=== PATIENT | male | born 1965 | race African-American/Black ===

== ENCOUNTER 2017-11-24 18:50 | Inpatient (IN) | payer OTHER ==
--- NOTE | 2017-11-24 19:39 | ED ---
General Adult HPI - General Chief complaint: Chest Pain Stated complaint: blayne, neck pain, chest pain Time Seen by Provider: 11/24/17 19:09 Source: patient, RN notes reviewed Mode of arrival: ambulatory Limitations: no limitations - History of Present Illness Initial comments: 52-year-old male presents for evaluation of chest pain. Patient has history of coronary artery bypass graft approximately 10 years ago. Patient has not followed up with primary care physician or cardiology in the past several years secondary to insurance issues. He states he's had worsening chest pain which is exertional over the past several months. He is also had some dyspnea associated with this. Pain radiates to his neck and left arm. He is not regularly taking any medication. He is a current smoker. He states he has had a mild cough and subjective fever yesterday. States his pain is substernal pressure and tightness. Patient is chest pain-free at the time my evaluation. - Related Data Home Medications Medication Instructions Recorded Confirmed Aspirin 325 mg PO DAILY 11/24/17 11/24/17 Allergies Allergy/AdvReac Type Severity Reaction Status Date / Time No Known Allergies Allergy Verified 11/24/17 20:10 Review of Systems ROS Statement: Those systems with pertinent positive or pertinent negative responses have been documented in the HPI. ROS Other: All systems not noted in ROS Statement are negative. Past Medical History Past Medical History: Coronary Artery Disease (CAD), Chest Pain / Angina History of Any Multi-Drug Resistant Organisms: None Reported Past Surgical History: Coronary Bypass/CABG Additional Past Surgical History / Comment(s): Bypass x 5 Smoking Status: Current every day smoker Past Alcohol Use History: None Reported Past Drug Use History: None Reported General Exam Limitations: no limitations General appearance: alert, in no apparent distress Head exam: Present: atraumatic, normocephalic Eye exam: Present: normal appearance, PERRL ENT exam: Present: normal exam Neck exam: Present: normal inspection. Absent: tenderness, meningismus Respiratory exam: Present: wheezes (Scattered wheezing) Cardiovascular Exam: Present: regular rate, normal rhythm GI/Abdominal exam: Present: soft. Absent: distended, tenderness Extremities exam: Present: normal inspection, normal capillary refill, pedal edema (trace) Back exam: Present: normal inspection, full ROM Neurological exam: Present: alert, oriented X3 Psychiatric exam: Present: normal affect, normal mood Skin exam: Present: warm, dry, intact. 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 EKG Findings - EKG Comments: EKG Findings:: EKG shows normal sinus rhythm, incomplete right bundle branch block, rate of 92 IA interval 144, QRS duration 112, QTC prolonged at 546, there is ST segment depression and T-wave abnormality in the lateral precordium and to 3 and aVF. This is new compared to EKG in 2009. Medical Decision Making - Medical Decision Making 52-year-old male presenting with chest pain, pain is been ongoing for months, worsening over the past 3 days. E[address] shows diffuse ST segment depressions no signs of ST segment elevation. Case is discussed with cardiology Dr. Leon. Patient will be heparinized, likely completed DC. Patient receives aspirin, heparin, and beta bob in emergency department. He was chest pain-free while in the emergency department. Laboratory studies reveal potassium 3.4 which is replaced, white blood cell count 13.7 mildly elevated, hemoglobin 14.5, creatinine 1.6 with no known baseline. Troponin significantly elevated at 33. Chest x-ray shows mild pulmonary vascular congestion consistent with heart failure. Diagnosis: Non-ST segment elevated DC, new onset heart failure - Lab Data Result diagrams: 11/24/17 19:30 11/24/17 19:30 Lab Results 11/24/17 11/24/17 11/24/17 Range/Units 19:30 19:30 19:30 WBC 13.7 H (3.8-10.6) k/uL RBC 5.02 (4.30-5.90) m/uL Hgb 14.5 (13.0-17.5) gm/dL Hct 43.5 (39.0-53.0) % MCV 86.5 (80.0-100.0) fL MCH 28.9 (25.0-35.0) pg MCHC 33.4 (31.0-37.0) g/dL RDW 14.8 (11.5-15.5) % Plt Count 199 (150-450) k/uL Neutrophils % 83 % Lymphocytes % 9 % Monocytes % 6 % Eosinophils % 0 % Basophils % 0 % Neutrophils # 11.4 H (1.3-7.7) k/uL Lymphocytes # 1.2 (1.0-4.8) k/uL Monocytes # 0.9 (0-1.0) k/uL Eosinophils # 0.0 (0-0.7) k/uL Basophils # 0.1 (0-0.2) k/uL PT (9.0-12.0) sec INR (<1.2) APTT (22.0-30.0) sec Sodium (137-145) mmol/L Potassium (3.5-5.1) mmol/L Chloride (98-107) mmol/L Carbon Dioxide (22-30) mmol/L Anion Gap mmol/L BUN (9-20) mg/dL Creatinine (0.66-1.25) mg/dL Est GFR (MDRD) Af Amer (>60 ml/min/1.73 sqM) Est GFR (MDRD) Non-Af (>60 ml/min/1.73 sqM) Glucose (74-99) mg/dL Plasma Lactic Acid Juwan 2.0 (0.7-2.0) mmol/L Calcium (8.4-10.2) mg/dL Magnesium (1.6-2.3) mg/dL Total Bilirubin (0.2-1.3) mg/dL AST (17-59) U/L ALT (21-72) U/L Alkaline Phosphatase (38-126) U/L Total Creatine Kinase 419 H (55-170) U/L CK-MB (CK-2) 29.5 H* (0.0-2.4) ng/mL CK-MB (CK-2) Rel Index 7.0 Troponin I 33.300 H* (0.000-0.034) ng/mL NT-Pro-B Natriuret Pep pg/mL Total Protein (6.3-8.2) g/dL Albumin (3.5-5.0) g/dL 11/24/17 11/24/17 11/24/17 Range/Units 19:30 19:30 19:30 WBC (3.8-10.6) k/uL RBC (4.30-5.90) m/uL Hgb (13.0-17.5) gm/dL Hct (39.0-53.0) % MCV (80.0-100.0) fL MCH (25.0-35.0) pg MCHC (31.0-37.0) g/dL RDW (11.5-15.5) % Plt Count (150-450) k/uL Neutrophils % % Lymphocytes % % Monocytes % % Eosinophils % % Basophils % % Neutrophils # (1.3-7.7) k/uL Lymphocytes # (1.0-4.8) k/uL Monocytes # (0-1.0) k/uL Eosinophils # (0-0.7) k/uL Basophils # (0-0.2) k/uL PT 11.6 (9.0-12.0) sec INR 1.2 H (<1.2) APTT 25.9 (22.0-30.0) sec Sodium 141 (137-145) mmol/L Potassium 3.4 L (3.5-5.1) mmol/L Chloride 103 (98-107) mmol/L Carbon Dioxide 26 (22-30) mmol/L Anion Gap 12 mmol/L BUN 30 H (9-20) mg/dL Creatinine 1.60 H (0.66-1.25) mg/dL Est GFR (MDRD) Af Amer 55 (>60 ml/min/1.73 sqM) Est GFR (MDRD) Non-Af 45 (>60 ml/min/1.73 sqM) Glucose 133 H (74-99) mg/dL Plasma Lactic Acid Juwan (0.7-2.0) mmol/L Calcium 9.2 (8.4-10.2) mg/dL Magnesium 2.0 (1.6-2.3) mg/dL Total Bilirubin 1.1 (0.2-1.3) mg/dL AST 104 H (17-59) U/L ALT 42 (21-72) U/L Alkaline Phosphatase 54 (38-126) U/L Total Creatine Kinase (55-170) U/L CK-MB (CK-2) (0.0-2.4) ng/mL CK-MB (CK-2) Rel Index Troponin I (0.000-0.034) ng/mL NT-Pro-B Natriuret Pep 67155 pg/mL Total Protein 6.5 (6.3-8.2) g/dL Albumin 3.5 (3.5-5.0) g/dL Critical Care Time Critical Care Time: Yes Total Critical Care Time: 35 Disposition Clinical Impression: NSTEMI (non-ST elevated myocardial infarction) Disposition: ADMITTED IP TO THIS [facility] Condition: Serious Referrals: Nino Rey MD [Primary Care Provider] - 1-2 days Decision to Admit Reason: Admit from EC Decision Date: 11/24/17 Decision Time: 20:49
--- NOTE | 2017-11-24 19:47 | XR ---
EXAMINATION TYPE: XR chest 2V DATE OF EXAM: 11/24/2017 COMPARISON: NONE HISTORY: Chest pain TECHNIQUE: Frontal and lateral views of the chest are obtained. FINDINGS: There is coarsening of interstitial markings. There is slight blunting of the posterior co stophrenic angles. There are sternal wires. There are chest leads. Heart size is normal. IMPRESSION: Mild pulmonary interstitial edema and small pleural effusions could relate to mild heart failure.
[2017-11-24 19:57] LABS: Albumin 3.5 g/dL (3.5-5.0); Basophils # (A) 0.1 k/uL (0-0.2); Basophils % (A) 0 %; Calcium 9.2 mg/dL (8.4-10.2); Eosinophils % (A) 0 %; HCT 43.5 % (39.0-53.0); HGB 14.5 gm/dL (13.0-17.5); Lymphocytes # (A) 1.2 k/uL (1.0-4.8); Lymphocytes % (A) 9 %; MCH 28.9 pg (25.0-35.0); MCHC 33.4 g/dL (31.0-37.0); MCV 86.5 fL (80.0-100.0); Monocytes # (A) 0.9 k/uL (0-1.0); Monocytes % (A) 6 %; Neutrophils # (A) 11.4 k/uL (1.3-7.7); Neutrophils % (A) 83 %; Platelet Count 199 k/uL (150-450); Potassium 3.4 mmol/L (3.5-5.1); RBC 5.02 m/uL (4.30-5.90); RDW 14.8 % (11.5-15.5); Total Bilirubin 1.1 mg/dL (0.2-1.3); Total Protein 6.5 g/dL (6.3-8.2); WBC 13.7 k/uL (3.8-10.6)
[2017-11-24 20:09] LABS: INR 1.2 (<1.2); Partial Thromboplastin Time 25.9 sec (22.0-30.0); Prothrombin Time 11.6 sec (9.0-12.0)
[2017-11-24] MEDS ORDERED: FUROSEMIDE 10 MG/ML 4 ML VIAL IV STA (20:14)
[2017-11-24] MEDS ORDERED: POTASSIUM CHLORIDE ER 20 MEQ TAB.ER PO STA (20:14)
[2017-11-24] MEDS ORDERED: ASPIRIN 325 MG TAB PO STA (20:14)
[2017-11-24] MEDS ORDERED: HEPARIN SODIUM,PORCINE 5,000 UNIT/ML 1 ML VIAL IV ONE (20:16)
[2017-11-24] MEDS ORDERED: HEPARIN SODIUM,PORCINE 5,000 UNIT/ML 1 ML VIAL IV PRN (20:16)
[2017-11-24 20:22] LABS: Creatine Kinase MB 29.5 ng/mL (0.0-2.4); Troponin I 33.3 ng/mL (0.000-0.034)
[2017-11-24] MEDS ORDERED: HEPARIN SOD,PORK IN 0.45% NACL 25,000 UNIT in 0.45% NACL 1 500ML.BAG IV SCH (20:30)
[2017-11-24] MEDS ORDERED: NITROGLYCERIN SL TABS 0.4 MG TAB SUBLINGUAL PRN (20:45)
[2017-11-24] MEDS: ATORVASTATIN 80 MG TAB PO SCH (21:09)
[2017-11-24] MEDS: METOPROLOL TARTRATE 12.5 MG TAB PO SCH (21:10)
[2017-11-24] MEDS ORDERED: ACETAMINOPHEN TAB 500 MG TAB PO STA (21:34)
[2017-11-24] MEDS ORDERED: ALPRAZolam 0.25 MG TAB PO PRN (23:03)
[2017-11-24] MEDS ORDERED: TEMAZEPAM 15 MG CAP PO PRN (23:03)
[2017-11-24] MEDS ORDERED: NICOTINE 14MG/24HR PATCH TRANSDERM SCH (23:15)
[2017-11-25 03:17] LABS: Basophils # (A) 0.1 k/uL (0-0.2); Basophils % (A) 1 %; Eosinophils # (A) 0.1 k/uL (0-0.7); Eosinophils % (A) 1 %; Lymphocytes # (A) 2.6 k/uL (1.0-4.8); Lymphocytes % (A) 20 %; MCH 28.8 pg (25.0-35.0); MCHC 32.6 g/dL (31.0-37.0); MCV 88.2 fL (80.0-100.0); Mean Platelet Volume 8.3; Monocytes # (A) 0.8 k/uL (0-1.0); Monocytes % (A) 6 %; Neutrophils # (A) 9.3 k/uL (1.3-7.7); Neutrophils % (A) 71 %; Platelet Count 237 k/uL (150-450); RBC 5.21 m/uL (4.30-5.90); RDW 14.9 % (11.5-15.5); WBC 13.2 k/uL (3.8-10.6)
[2017-11-25 03:27] LABS: Calcium 9.3 mg/dL (8.4-10.2); Potassium 3.5 mmol/L (3.5-5.1)
[2017-11-25 04:05] LABS: Creatine Kinase MB 28.9 ng/mL (0.0-2.4); Troponin I 50.3 ng/mL (0.000-0.034)
[2017-11-25 04:59] LABS: Appearance,Urine Clear (Clear); Bilirubin,Urine Negative (Negative); Blood,Urine Trace (Negative); Color,Urine Yellow; Glucose,Urine (UA) Negative (Negative); Hyaline Casts,Urine 92 /lpf (0-2); Ketones,Urine Negative (Negative); Leukocyte Esterase,Urine Negative (Negative); Mucus,Urine Rare /hpf; Nitrite,Urine Negative (Negative); PH, Urine 5.5 (5.0-8.0); Protein,Urine 1+ (Negative); Urobilinogen,Urine <2.0 mg/dL (<2.0)
[2017-11-25] MEDS: PANTOPRAZOLE 40 MG TABLET PO SCH (06:40)
[2017-11-25] MEDS ORDERED: ATORVASTATIN 80 MG TAB PO STA (07:54)
[2017-11-25] MEDS ORDERED: SODIUM CHLORIDE 0.9% 1,000 ML in EMPTY BAG 1 BAG IV ONE (07:54)
[2017-11-25] MEDS ORDERED: NITROGLYCERIN SL TABS 0.4 MG TAB SUBLINGUAL PRN (07:54)
[2017-11-25] MEDS ORDERED: ASPIRIN 325 MG TAB PO STA (07:54)
[2017-11-25] MEDS: METOPROLOL TARTRATE 12.5 MG TAB PO SCH ×2 (08:15→20:12)
[2017-11-25] MEDS: ASPIRIN 325 MG TAB PO SCH (08:16)
[2017-11-25] MEDS ORDERED: LIDOCAINE 2% INJ 20 MG/ML (20 ML MDV) ONE (08:37)
--- NOTE | 2017-11-25 08:46 | HP ---
HISTORY AND PHYSICAL CHIEF COMPLAINTS: Chest pain. HISTORY OF PRESENT ILLNESS: This 52-year-old gentleman with a past history of atrial fibrillation, CAD, hypertension, history of hyperlipidemia, history of DJD being followed by Dr. Rey and Dr. Maddox previously is basically noncompliant with medications. Patient had CAD, CABG x5 about 10 years ago. The patient is not taking medication. Patient continues to smoke. For the last several months the patient is having chest pains on and off involving the left side of the chest radiating to the left side of the neck and to the jaw. The patient came to [facility] today and the EKG showed multiple changes with ST depression in multiple leads and non-progression of R wave in anterior leads. Comparison EKGs not available at this time. The troponins elevated up to 30 and the patient admitted for further evaluation and treatment. IV heparin drip was initiated. There is no history of fever, rigors. No history of headache, loss of consciousness, seizures. PAST MEDICAL HISTORY: Atrial fibrillation, CAD, chest pain, hypertension, hyperlipidemia, DJD, history of CAD and CABG. MEDICATIONS: Prior to admission previously was: 1. Zocor 40 mg q.h.s. 2. Sherburn 10 mg q.4h p.r.n. 3. Aspirin 160 mg daily. 4. Clonidine 0.1 p.o. t.i.d. 5. Lopressor 50 mg b.i.d. ALLERGIES: None. FAMILY HISTORY: History of breast cancer in the family. SOCIAL HISTORY: History of smoking on a continued basis. REVIEW OF SYSTEMS: ENT: No diminished hearing or vision. CARDIOVASCULAR: As mentioned earlier. RESPIRATORY: As mentioned earlier. GI: No nausea. : No dysuria. NERVOUS SYSTEMS: No numbness or weakness. ALLERGY/IMMUNOLOGY: No asthma or hayfever. MUSCULOSKELETAL: No history of arthritis. CONSTITUTIONAL: As mentioned earlier. DERMATOLOGY: Negative. RHEUMATOLOGY: Negative. PSYCHIATRY: As mentioned earlier. PHYSICAL EXAM: Patient is alert, oriented x3. Pulse is 88, blood pressure 130/88, respiration 18, temperature is 101.1, pulse ox 97% on 2 L. HEENT: Conjunctivae normal. Oral mucosa moist. Neck is no jugular venous distention. No carotid bruit. No lymph node enlargement. CARDIOVASCULAR: S1, S2. RESPIRATORY: Breath sounds diminished in the bases. No rhonchi. No crackles. ABDOMEN: Soft, nontender. No mass palpable. LEGS: No edema, no swelling. NERVOUS SYSTEM: Higher functions as mentioned earlier, moves all 4 limbs, no focal motor or sensory deficits. LYMPHATICS: No lymphadenopathy in the neck, axillae, or groin. SKIN: No ulcer, rash, bleeding. LAB STUDIES: WBC 13.7. INR 1.2. Potassium 3.4, creatinine 1.60, AST is 104, ALT is 42, creatine kinase 119, and troponins are 33. ASSESSMENT: 1. Chest pain with acute non ST-segment elevation myocardial infarction with troponin 33.3300. 2. ST-T changes in the EKG. 3. History of myocardial infarction, coronary artery disease, CABG x5 previously. 4. History of noncompliance. 5. Increased creatinine possible chronic kidney disease stage 3. 6. Hypokalemia, mild. 7. Fever for evaluation. 8. Increased WBC, possibly reactive. 9. History atrial fibrillation. 10.History of hypertension. 11.History of hyperlipidemia. 12.History of degenerative joint disease. 13.Continued ongoing nicotine dependence. RECOMMENDATIONS AND DISCUSSION: This 52-year-old gentleman who presented with multiple complex medical issues, we will monitor the patient closely. Continue the current management and symptomatic treatment. I recommend antiplatelet agents, beta blockers, IV heparin. Cardiology consultation. Smoking cessation Habitrol. I would also recommend Lipitor at this time. Importance of compliance also stressed. Will follow the patient closely with Cardiology. Prognosis guarded because of multiple complex medical issues. Discussed with the patient and family who understands and further recommendations to follow. MMODL / IJN: [id number] /
--- NOTE | 2017-11-25 09:02 | P.CRDCN ---
History of Present Illness History of present illness: Patient presented with recurrent chest discomfort and worsening shortness of breath for several days may be more. History is very unclear he is noncompliant and has not followed up after his heart surgery with Dr. Maddox Review of systems: No fever chills or rigors, no cough, phlegm or expectoration , no nausea, vomiting or diarrhea, no hematuria, dysuria, no musculoskeletal complaints, no strokes or seizures, no skin lesions. NO KNOWN DRUG ALLERGIES Medication list was reviewed and as documented in the chart Past history of coronary artery disease coronary artery bypass grafting peripheral vascular disease peripheral vascular surgery noncompliance with follow-up with cardiology On examination his temperature is 101.1 he had been complaining of cough with brownish phlegm this morning it was 97.2F, pulse rate in the 70s, normal respirations nonlabored, blood pressure 133 were reformatted images of mercury Breath sounds are reduced bilaterally no rhonchi no crackles Heart sounds S1 and S2 are soft no murmurs or gallops Abdomen is soft nontender Extended is warm no edema Labs are reviewed white count 13.2 Lites are normal. 31 creatinine 1.7 Troponins 33 and 50 BMP 14,900 Twelve-lead ECG shows sinus rhythm 92 beats a minute normal NH narrow QRS ST depression upsloping V4-V6 and horizontal 1-2 mm in the inferior leads Impression Non-Q wave myocardial infarction Known coronary artery disease status post coronary artery bypass grafting Known peripheral vascular disease Presented with shortness of breath and recurrent chest discomfort for several days history is sketchy Suggest Medical management of acute myocardial infarction and coronary angiography this morning for the management thereafter Gradual maximization of medical treatment Past Medical History Past Medical History: Atrial Fibrillation, Coronary Artery Disease (CAD), Chest Pain / Angina, Hyperlipidemia, Hypertension, Osteoarthritis (OA) History of Any Multi-Drug Resistant Organisms: None Reported Past Surgical History: Coronary Bypass/CABG Additional Past Surgical History / Comment(s): CABG x 5 vessels Past Anesthesia/Blood Transfusion Reactions: No Reported Reaction Past Psychological History: No Psychological Hx Reported Smoking Status: Current every day smoker Past Alcohol Use History: None Reported Past Drug Use History: None Reported - Past Family History Mother Family Medical History: Cancer Additional Family Medical History / Comment(s): breast Father Family Medical History: CVA/TIA Sister(s) Family Medical History: Cancer Medications and Allergies Home Medications Medication Instructions Recorded Confirmed Type Aspirin 162 mg PO DAILY 11/24/17 11/24/17 History HYDROcodone/APAP 10-325MG [Modale 1 tab PO Q4HR PRN 11/24/17 11/24/17 History 10-325] Metoprolol Tartrate [Lopressor] 50 mg PO BID 11/24/17 11/24/17 History Simvastatin [Zocor] 40 mg PO HS 11/24/17 11/24/17 History cloNIDine HCL [Catapres] 0.1 mg PO TID 11/24/17 11/24/17 History Allergies Allergy/AdvReac Type Severity Reaction Status Date / Time No Known Allergies Allergy Verified 11/24/17 20:10 Physical Exam Vitals: Vital Signs Temp Pulse Pulse Resp BP BP Pulse Ox 11/25/17 07:55 98.5 F 82 16 142/99 98 11/25/17 04:00 97.2 F L 75 16 133/84 98 11/25/17 00:26 99 F 86 18 136/90 96 11/24/17 21:33 101.1 F H 86 14 151/94 98 11/24/17 20:47 88 18 136/88 97 11/24/17 19:34 90 11/24/17 18:56 88 18 136/88 98 11/24/17 18:53 98.8 F 95 24 165/96 97 Intake and Output 11/24/17 11/25/17 11/25/17 22:59 06:59 14:59 Intake Total 300.667 0 Output Total 400 Balance -99.333 0 Intake: IV 160 Heparin Sod,Pork in 0.45% 160 NaCl 25,000 unit In 0.45 % NaCl 1 500ml.bag @ 8.48 UNITS/KG/HR 20 mls/hr IV .Q24H ADRIEL Rx#:[id number] Intake, IV Titration 140.667 Amount Heparin Sod,Pork in 0.45% 140.667 NaCl 25,000 unit In 0.45 % NaCl 1 500ml.bag @ 8.48 UNITS/KG/HR 20 mls/hr IV .Q24H ADRIEL Rx#:[id number] Oral 0 Output: Urine 400 Other: Voiding Method Toilet Weight 117.934 kg 128.9 kg Results 11/25/17 02:48 11/25/17 02:48 Cardiac Enzymes 11/24/17 11/24/17 11/25/17 Range/Units 19:30 19:30 02:48 AST 104 H (17-59) U/L CK-MB (CK-2) 29.5 H* 28.9 H* (0.0-2.4) ng/mL Troponin I 33.300 H* 50.300 H* (0.000-0.034) ng/mL Coagulation 11/24/17 11/25/17 Range/Units 19:30 02:48 PT 11.6 (9.0-12.0) sec APTT 25.9 27.4 (22.0-30.0) sec Lipids 11/25/17 Range/Units 02:48 Triglycerides 94 (<150) mg/dL Cholesterol 166 (<200) mg/dL HDL Cholesterol 50 (40-60) mg/dL CBC 11/24/17 11/25/17 Range/Units 19:30 02:48 WBC 13.7 H 13.2 H (3.8-10.6) k/uL RBC 5.02 5.21 (4.30-5.90) m/uL Hgb 14.5 15.0 (13.0-17.5) gm/dL Hct 43.5 46.0 (39.0-53.0) % Plt Count 199 237 (150-450) k/uL Comprehensive Metabolic Panel 11/24/17 11/25/17 Range/Units 19:30 02:48 Sodium 141 140 (137-145) mmol/L Potassium 3.4 L 3.5 (3.5-5.1) mmol/L Chloride 103 103 (98-107) mmol/L Carbon Dioxide 26 28 (22-30) mmol/L BUN 30 H 31 H (9-20) mg/dL Creatinine 1.60 H 1.70 H (0.66-1.25) mg/dL Glucose 133 H 99 (74-99) mg/dL Calcium 9.2 9.3 (8.4-10.2) mg/dL AST 104 H (17-59) U/L ALT 42 (21-72) U/L Alkaline Phosphatase 54 (38-126) U/L Total Protein 6.5 (6.3-8.2) g/dL Albumin 3.5 (3.5-5.0) g/dL Current Medications Generic Name Dose Route Start Last Admin Trade Name Freq PRN Reason Stop Dose Admin Hydrocodone Bitart/Acetaminophen 1 each 11/24/17 22:36 Modale 10 PO Q4HR PRN Pain Alprazolam 0.25 mg 11/25/17 07:54 Xanax PO Q6HR PRN Mild Anxiety Alprazolam 0.5 mg 11/25/17 07:54 Xanax PO Q6HR PRN Moderate Anxiety Aspirin 325 mg 11/25/17 09:00 11/25/17 08:16 Aspirin PO Not Given DAILY [facility] Atorvastatin Calcium 40 mg 11/24/17 21:00 11/24/17 21:09 Lipitor PO 40 mg HS [facility] Administration Heparin Sodium (Porcine) 0 unit 11/24/17 20:16 11/25/17 03:36 Heparin IV 4,000 unit PER PROTOCOL PRN Administration Low PTT Protocol Heparin Sodium/Sodium Chloride 500 mls @ 20 mls/hr 11/24/17 20:30 11/25/17 03 :36 25,000 unit/ Sodium Chloride IV 11.48 units/kg/hr .Q24H ADRIEL 27.07 mls/hr Protocol Titration 8.48 UNITS/KG/HR Metoprolol Tartrate 12.5 mg 11/24/17 21:00 11/25/17 08:15 Lopressor PO 12.5 mg BID [facility] Administration Nicotine 1 patch 11/25/17 07:59 Habitrol 14mg/24hr Patch [facility] Nitroglycerin 0.4 mg 11/25/17 07:54 Nitrostat SUBLINGUAL Q5M PRN Chest Pain Pantoprazole Sodium 40 mg 11/25/17 07:30 11/25/17 06:40 Protonix PO 40 mg [id number] [facility] Administration Temazepam 15 mg 11/24/17 23:03 Restoril PO HS PRN Insomnia Intake and Output 11/24/17 11/25/17 11/25/17 22:59 06:59 14:59 Intake Total 300.667 0 Output Total 400 Balance -99.333 0 Intake: IV 160 Heparin Sod,Pork in 0.45% 160 NaCl 25,000 unit In 0.45 % NaCl 1 500ml.bag @ 8.48 UNITS/KG/HR 20 mls/hr IV .Q24H ADRIEL Rx#:[id number] Intake, IV Titration 140.667 Amount Heparin Sod,Pork in 0.45% 140.667 NaCl 25,000 unit In 0.45 % NaCl 1 500ml.bag @ 8.48 UNITS/KG/HR 20 mls/hr IV .Q24H [facility] Rx#:[id number] Oral 0 Output: Urine 400 Other: Voiding Method Toilet Weight 117.934 kg 128.9 kg 11/25/17 02:48 11/25/17 02:48
[2017-11-25] MEDS ORDERED: MIDAZOLAM 2 MG/2 ML VIAL ONE (09:14)
[2017-11-25] MEDS ORDERED: MIDAZOLAM 2 MG/2 ML VIAL IV ONE ×2 (09:22→09:26)
[2017-11-25] MEDS ORDERED: LIDOCAINE 2% INJ 20 MG/ML SQ ONE ×2 (09:25→09:57)
[2017-11-25 09:45] LABS: Creatine Kinase MB 20.4 ng/mL (0.0-2.4); Troponin I 50.4 ng/mL (0.000-0.034)
[2017-11-25] MEDS ORDERED: IODIXANOL 320 MG/ML 100 ML INTRAARTER ONE (09:57)
[2017-11-25] MEDS ORDERED: HYDROmorphone 2 MG/ML 1 ML SYRINGE ONE (09:58)
[2017-11-25] MEDS ORDERED: HYDROmorphone 2 MG/ML 1 ML SYRINGE IV ONE (10:00)
[2017-11-25] MEDS ORDERED: IV FLUID CONTINUATION 1,000 ML IV ONE (10:01)
[2017-11-25] MEDS ORDERED: RX INFO: IV CONTRAST WAS GIVEN 1 EACH MISC MISCELLANE PRN (10:12)
[2017-11-25] MEDS ORDERED: SODIUM CHLORIDE 0.9% 1,000 ML IV SCH (10:15)
--- NOTE | 2017-11-25 10:43 | CC ---
CARDIAC CATHETERIZATION REPORT DATE OF SERVICE: 11/25/2017 PERFORMING PHYSICIAN: Tristan Ramsey MD, Sports Director. PROCEDURE PERFORMED: 1. Selective left and right coronary angiogram. 2. SVG to diagonal angiogram. 3. SVG to first obtuse marginal branch angiogram. 4. SVG to second obtuse marginal branch angiogram. 5. SVG to RCA angiogram. 6. KILPATRICK to LAD angiogram. 7. Left heart catheterization. 8. Left ventriculography. INDICATION: This is a pleasant 52-year-old gentleman who is known to have coronary artery disease and prior coronary artery bypass grafting in 2008 where he received KILPATRICK to LAD, SVG to diag, SVG to 1st and second obtuse marginal branch, SVG to RCA, and KILPATRICK to LAD, presented to the hospital complaining of chest discomfort. Unfortunately, he continues to smoke. Also, he is noncompliant with his medication. He was seen and evaluated by Dr. Leon who recommended proceeding with a heart catheterization. APPROACH: Right common femoral artery. COMPLICATION: None LEVEL OF SEDATION: Moderate with sedation length of 37 minutes. PROCEDURE DESCRIPTION: After obtaining informed consent, the patient was brought to the Cardiac Track Inspecting Supervisor. The right common femoral artery was cannulated using micropuncture technique, the micropuncture wire passed easily. Then I placed a 6-Sami sheath in the right common femoral artery. After that, I did selective right and left coronary angiogram using JL4 and JR4 catheters. SVG to RCA angiogram was performed using multipurpose catheter. SVG to left circumflex and diagonal angiogram was performed using the JR4 catheter. KILPATRICK to LAD angiogram was performed using IM catheter. Subsequently, I did left heart catheterization and then LV gram using 6-Sami pigtail catheter. The procedure was completed without any complication. SELECTIVE CORONARY ANGIOGRAM: 1. The left main has distal lesion in the range of 70%. The left main bifurcates into the left circumflex, ramus intermedius, and left anterior descending artery. 2. The left circumflex is involved in the lesion from the distal left main and appeared to have a lesion ostially up in the range of 70%. The left circumflex proximally appeared to have mild disease only. It gives rise into a medium-size first obtuse marginal branch. which does have a lesion in the range of 50%. The first obtuse marginal branch distally appeared to have mild disease only. The left circumflex after the first OM branch appeared to be 100% occluded. 3. The ramus intermedius appeared to have mild disease only, but it is only a small to medium caliber vessel. 4. The left anterior descending artery is 100% occluded proximally. 5. The RCA is a medium caliber vessel and it is a dominant vessel. The RCA appeared to be diffusely diseased up to about 80% to 90% on the long tubular lesion in the midportion. The RCA after that appeared to be 100% occluded. CORONARY BYPASS ANGIOGRAM: 1. The SVG to diag is occluded. 2. The SVG to first obtuse marginal branch is occluded. 3. The SVG to second obtuse marginal branch is occluded. 4. The SVG to RCA is patent. 5. The KILPATRICK to LAD is patent. The LAD distal to the KILPATRICK anastomosis has lesion appeared to be in the range of 40% to 50%. 6. HEMODYNAMICS: The left ventricular end-diastolic pressure was about 8 mmHg and no gradient was identified across the aortic valve. Left ventriculography was performed in the BONNER projection and using a hand injection. The left ventricular systolic function by hand injection is difficult to assess but appeared to be impaired with EF about 35%. CONCLUSION: 1. Severe triple-vessel coronary artery disease. 2. Patent KILPATRICK to LAD. 3. Patent SVG to RCA. 4. Occluded vein grafts to left circumflex. POSTPROCEDURE MANAGEMENT: I recommended at this point in view of the maximal amount of contrast used to pursue a conservative medical approach and medical treatment only. Another reason to pursue a conservative medical approach, the patient being noncompliant with his medications. The only time I would consider proceeding with PCI of the distal left main and left circumflex, if the patient continues to have chest discomfort in spite of maximized medical treatment. MMODL / IJN: [id number] /
[2017-11-25] MEDS: ACETAMINOPHEN TAB 500 MG TAB PO PRN (11:21)
[2017-11-25] MEDS: HYDROcodone/APAP 10-325MG 1 EACH TAB PO PRN ×2 (12:46→20:19)
[2017-11-25] MEDS: ALPRAZolam 0.25 MG TAB PO PRN (12:46)
[2017-11-25] MEDS: NICOTINE 14MG/24HR PATCH TRANSDERM SCH (20:12)
[2017-11-25] MEDS: ATORVASTATIN 80 MG TAB PO SCH (20:12)
[2017-11-25] MEDS: ALPRAZolam 0.5 MG TAB PO PRN (20:19)
[2017-11-26] MEDS: HYDROcodone/APAP 10-325MG 1 EACH TAB PO PRN ×3 (02:18→13:40)
[2017-11-26] MEDS: ALPRAZolam 0.25 MG TAB PO PRN ×2 (02:18→13:40)
[2017-11-26] MEDS ORDERED: ONDANSETRON 4 MG/2 ML VIAL IVP PRN (02:22)
[2017-11-26] MEDS: METOPROLOL TARTRATE 12.5 MG TAB PO SCH (04:20)
[2017-11-26] MEDS: PANTOPRAZOLE 40 MG TABLET PO SCH (06:16)
[2017-11-26 06:57] LABS: Basophils # (A) 0.1 k/uL (0-0.2); Basophils % (A) 1 %; Eosinophils # (A) 0.1 k/uL (0-0.7); Eosinophils % (A) 1 %; HCT 42.9 % (39.0-53.0); HGB 13.6 gm/dL (13.0-17.5); Hypochromasia Slight; Lymphocytes % (A) 17 %; MCHC 31.8 g/dL (31.0-37.0); MCV 88.1 fL (80.0-100.0); Mean Platelet Volume 9.4; Monocytes # (A) 0.9 k/uL (0-1.0); Monocytes % (A) 8 %; Neutrophils # (A) 8.3 k/uL (1.3-7.7); Neutrophils % (A) 71 %; Platelet Count 206 k/uL (150-450); RBC 4.87 m/uL (4.30-5.90); RDW 15.8 % (11.5-15.5); WBC 11.6 k/uL (3.8-10.6)
[2017-11-26 07:11] LABS: Calcium 8.8 mg/dL (8.4-10.2); Potassium 3.9 mmol/L (3.5-5.1)
--- NOTE | 2017-11-26 07:17 | PN ---
PROGRESS NOTE DATE OF SERVICE: 11/25/2017 This 52-year-old gentleman who was admitted with chest pain had a history of significant noncompliance. The patient is not taking medications and continues to smoke also. Cardiology performed a cardiac catheterization. Cardiac cath showed severe triple-vessel coronary artery disease and patent KILPATRICK to LAD, patent SVG to RCA, and occluded vein graft to the left circumflex. Medical treatment was considered at this time. In case of chest pains, further intervention is being planned by Dr. Ramsey. Mild fever is noted, no cough. No shortness of breath. PHYSICAL EXAM: Alert and oriented x3. The pulse is 82, blood pressure 140/89, respirations 16, temperature 98.4, pulse ox 98% on room air. HEENT: Conjunctivae normal. NECK: No jugular venous distention. CARDIOVASCULAR: S1, S2, muffled. RESPIRATORY: Breath sounds diminished in the bases. A few scattered rhonchi and crackles. ABDOMEN: Soft, nontender. LEGS: No edema. NERVOUS SYSTEM: No focal deficits. LAB STUDIES: Troponin is 50.4, otherwise UA noted. Influenza is negative and WBC 13.2. ASSESSMENT: 1. Chest pain with acute non ST elevation myocardial infarction with troponin 33.3. 2. ST changes in the EKG. 3. Fever. 4. History of myocardial infarction, coronary artery disease, CABG x5 previously. 5. History of noncompliance. 6. History nicotine dependence, continued ongoing. 7. Increased creatinine with possible chronic kidney disease stage 3. 8. Hypokalemia, mild. 9. Increased WBC, possibly reactive. 10.History atrial fibrillation. 11.History hypertension. 12.Hyperlipidemia. 13.Degenerative joint disease. RECOMMENDATIONS AND DISCUSSION: I recommend to continue current management and continue symptomatic treatment. Continue the rest of the medications. We will monitor the creatinine closely. Repeat labs. Otherwise closely follow with Cardiology. Optimize medical treatment. Guarded prognosis because of multiple complex medical issues. Further recommendations to follow. MMODL / IJN: [id number] /
[2017-11-26] MEDS: ASPIRIN 325 MG TAB PO SCH (08:57)
[2017-11-26] MEDS: METOPROLOL TARTRATE 50 MG TAB PO SCH ×2 (11:56→20:31)
--- NOTE | 2017-11-26 13:16 | P.PN ---
Subjective Patient was seen this morning. He was sleeping comfortably in bed. He has not complained of any chest discomfort but he has definitely had some anxiety spells according to the nurse with fluctuations in blood pressure On examination his blood pressure was 144/90 mmHg pulse rate in the 90s temperature 99.2F Sounds are reduced bilaterally no rhonchi no crackles Heart sounds are normal normal S1 normal S2 Abdomen is soft and extremities are warm no edema Impression Known coronary artery disease, coronary angiography revealed triple-vessel coronary artery disease and medical management is recommended. No interventions performed. Continue antiplatelet agents and statins and increase metoprolol tartrate to 75 g twice daily LDL goal of around 50 mrem per deciliter since he has severe atherosclerosis. If his blood pressure is not controlled we can switch to carvedilol next week. Also Nitropaste can be switched to oral isosorbide Objective - Vital Signs Vital signs: Vital Signs Temp 99.2 F 11/26/17 08:00 Pulse 91 11/26/17 12:00 Resp 16 11/26/17 13:00 BP 146/104 11/26/17 12:00 Pulse Ox 96 11/26/17 12:00 Intake & Output 11/25/17 11/26/17 11/26/17 18:59 06:59 18:59 Intake Total 2470 810 780 Output Total 600 Balance 2470 210 780 Weight 129.5 kg Intake: IV 550 810 Sodium Chloride 0.9% 1, 810 000 ml @ 100 mls/hr IV . Q10H ADRIEL Rx#:[id number] Intake, IV Titration 800 Amount Sodium Chloride 0.9% 1, 800 000 ml @ 100 mls/hr IV . Q10H ADRIEL Rx#:[id number] Oral 1120 780 Output: Urine 600 Other: Voiding Method Toilet Toilet - Labs CBC & Chem 7: 11/26/17 06:14 11/26/17 06:14 Labs: Abnormal Lab Results - Last 24 Hours (Table) 11/26/17 11/26/17 Range/Units 06:14 06:14 WBC 11.6 H (3.8-10.6) k/uL RDW 15.8 H (11.5-15.5) % Neutrophils # 8.3 H (1.3-7.7) k/uL BUN 30 H (9-20) mg/dL Creatinine 1.57 H (0.66-1.25) mg/dL Microbiology - Last 24 Hours (Table) 11/24/17 19:30 Blood Culture - Preliminary Blood No Growth after 24 hours
[2017-11-26] MEDS: ACETAMINOPHEN TAB 500 MG TAB PO PRN (17:30)
[2017-11-26] MEDS: cloNIDine HCL 0.1 MG TAB PO SCH ×2 (17:30→20:34)
--- NOTE | 2017-11-26 19:35 | PN ---
PROGRESS NOTE DATE OF SERVICE: 11/26/2017. INTERVAL HISTORY: This 52-year-old gentleman who was admitted with chest pain also had features of acute non ST elevation myocardial infarction. Patient had cardiac catheterization and intervention has been deferred for now. No chest pain. No palpitations. No fever. EXAM: Alert, and oriented x3. Pulse 90. Blood pressure 140/51, respiration 18, temperature is normal. Pulse ox 98% on room air. HEENT: Conjunctivae normal. NECK: No jugular venous distention. CARDIOVASCULAR: S1, S2 normal. Respirations: Breath sounds diminished in the bases. No rhonchi and no crackles. Abdomen is soft, obese, nontender. Legs are no edema, no swelling. Central nervous system: No focal deficits. LABS: WBC 11.6. Otherwise, creatinine is 1.56. ASSESSMENT: 1. Chest pain with possible acute non ST- segment elevation myocardial infarction, troponin 33.3. 2. Status post cardiac catheterization. 3. ST-T changes on the EKG. 4. Fever, improved. 5. History of myocardial infarction, coronary artery disease, coronary artery bypass grafting x5, previously. 6. History of noncompliance. 7. History of nicotine dependence, continued ongoing. 8. Increased creatinine with possible chronic kidney disease stage 3. 9. Hypokalemia, mild. 10.Increased WBC, possibly reactive. 11.History of atrial fibrillation. 12.History of hypertension. 13.History of hyperlipidemia. 14.History of degenerative joint disease. RECOMMENDATION AND DISCUSSION: Recommend to continue current medications, continue with medical treatment. Otherwise repeat labs. Monitor creatinine closely. Closely follow with Cardiology. Prognosis guarded. Discussed with the patient and family who understands and agrees. Further recommendations to follow. MMODL / IJN: [id number] /
[2017-11-26] MEDS: ATORVASTATIN 80 MG TAB PO SCH (20:31)
[2017-11-26] MEDS: NICOTINE 14MG/24HR PATCH TRANSDERM SCH (20:32)
[2017-11-27] MEDS: HYDROcodone/APAP 10-325MG 1 EACH TAB PO PRN ×2 (02:42→18:33)
[2017-11-27] MEDS: ALPRAZolam 0.5 MG TAB PO PRN (02:42)
[2017-11-27 06:41] LABS: Basophils # (A) 0.1 k/uL (0-0.2); Basophils % (A) 1 %; Eosinophils # (A) 0.1 k/uL (0-0.7); Eosinophils % (A) 1 %; HCT 43.4 % (39.0-53.0); HGB 13.5 gm/dL (13.0-17.5); Hypochromasia Slight; Lymphocytes # (A) 1.9 k/uL (1.0-4.8); Lymphocytes % (A) 21 %; MCH 27.9 pg (25.0-35.0); MCHC 31.1 g/dL (31.0-37.0); MCV 89.6 fL (80.0-100.0); Monocytes # (A) 0.7 k/uL (0-1.0); Monocytes % (A) 8 %; Neutrophils # (A) 6.1 k/uL (1.3-7.7); Neutrophils % (A) 67 %; Platelet Count 210 k/uL (150-450); RBC 4.84 m/uL (4.30-5.90); RDW 15.9 % (11.5-15.5); WBC 9.1 k/uL (3.8-10.6)
[2017-11-27] MEDS: PANTOPRAZOLE 40 MG TABLET PO SCH (06:45)
[2017-11-27 06:54] LABS: Anion Gap 10 mmol/L; Blood Urea Nitrogen 26 mg/dL (9-20); Calcium 8.9 mg/dL (8.4-10.2); Carbon Dioxide 24 mmol/L (22-30); Chloride 107 mmol/L (98-107); Glucose 94 mg/dL (74-99); Potassium 3.9 mmol/L (3.5-5.1); Sodium 141 mmol/L (137-145)
[2017-11-27] MEDS: METOPROLOL TARTRATE 50 MG TAB PO SCH ×2 (08:39→21:07)
[2017-11-27] MEDS: cloNIDine HCL 0.1 MG TAB PO SCH ×3 (08:40→21:07)
[2017-11-27] MEDS: ASPIRIN 325 MG TAB PO SCH (08:40)
--- NOTE | 2017-11-27 14:27 | ECHOF ---
Referral Reason:cad MEASUREMENTS -------- HEIGHT: 172.7 cm WEIGHT: 128.8 kg BP: 126/78 IVSd: 1.3 cm (0.6 - 1.1) LVIDd: 5.6 cm (3.9 - 5.3) LVPWd: 1.2 cm (0.6 - 1.1) IVSs: 1.5 cm LVIDs: 4.8 cm LVPWs: 1.4 cm RVIDd: 2.8 cm (< 3.3) LAESV Index (A-L): 41.02 ml/m Ao Diam: 3.4 cm (2.0 - 3.7) LA Diam: 4.8 cm (2.7 - 3.8) AV Cusp: 2.0 cm (1.5 - 2.6) EPSS: 1.1 cm MV E Amando: 1.12 m/s MV DecT: 200 ms MV A Amando: 0.48 m/s MV E/A Ratio: 2.35 RAP: 5.00 mmHg RVSP: 11.22 mmHg MV EF SLOPE: 59.83 mm/s (70 - 150) MV EXCURSION: 1.36 cm (> 18.000) FINDINGS -------- Sinus rhythm. This was a technically good study. The left ventricular size is normal. There is mild concentric left ventricular hypertrophy. Overa ll left ventricular systolic function is moderate-severely impaired with, an EF between 30 - 35 %. Basal anterior LV wall motion is hypokinetic. Basal lateral LV wall motion is hypokinetic. Basa l inferior LV wall motion is hypokinetic. Mid lateral LV wall motion is akinetic. Mid inferior LV wall motion is hypokinetic. Apical lateral LV wall motion is hypokinetic. The RV was not well visualized. LA is severely dilated >40 ml/m2 The right atrium is normal in size. Aortic valve is trileaflet and is mildly thickened. There is no evidence of aortic regurgitation. There is no evidence of aortic stenosis. The mitral valve leaflets are mildly thickened. There is trace mitral regurgitation. Trace tricuspid regurgitation present. Right ventricular systolic pressure is normal at < 35 mmHg. There is no evidence of pulmonary hypertension. The pulmonic valve was not well visualized. The aortic root size is normal. Normal inferior vena cava with normal inspiratory collapse consistent with estimated right atrial pre ssure of 5 mmHg. The pericardium is normal. There is no pericardial effusion. CONCLUSIONS -------- 1. Sinus rhythm. 2. This was a technically good study. 3. The left ventricular size is normal. 4. There is mild concentric left ventricular hypertrophy. 5. Overall left ventricular systolic function is moderate-severely impaired with, an EF between 30 - 35 %. 6. Basal lateral LV wall motion is hypokinetic. 7. Basal inferior LV wall motion is hypokinetic. 8. Mid lateral LV wall motion is akinetic. 9. Mid inferior LV wall motion is hypokinetic. 10. Apical lateral LV wall motion is hypokinetic. 11. The RV was not well visualized. 12. LA is severely dilated >40 ml/m2 13. Aortic valve is trileaflet and is mildly thickened. 14. The mitral valve leaflets are mildly thickened. 15. There is trace mitral regurgitation. 16. Trace tricuspid regurgitation present. 17. Right ventricular systolic pressure is normal at < 35 mmHg. 18. There is no evidence of pulmonary hypertension. 19. The pulmonic valve was not well visualized. 20. The aortic root size is normal. 21. There is no pericardial effusion. INTELLIGENCE SPECIALIST: Brian Verma [facility]
[2017-11-27] MEDS: CLOPIDOGREL 75 MG TAB PO SCH (15:17)
[2017-11-27] MEDS: ALBUTEROL NEBULIZED 2.5 MG/3 ML INHALATION PRN ×2 (16:35→20:14)
--- NOTE | 2017-11-27 18:04 | PN ---
PROGRESS NOTE This patient is admitted with non ST-segment elevation myocardial infarction. He has been treated medically. Patient has a moderately impaired left ventricular systolic function. The patient's blood pressure had been remaining elevated and the medications are being adjusted. He is feeling better. Denies any chest pain, no shortness of breath. Blood pressure is 132/91 mmHg. First and second heart sounds are normal. Lungs are clinically clear to auscultation and percussion. Abdomen is soft. The patient's creatinine is 1.46. We will start the patient on lisinopril 5 mg daily and we will add Plavix. Continue the rest of the medications. MMODL / IJN: [id number] /
--- NOTE | 2017-11-27 18:09 | PN ---
PROGRESS NOTE DATE OF SERVICE: 11/27/2017. This 52-year-old gentleman admitted with chest pain, acute non ST elevation myocardial infarction, had history of noncompliance. The patient had cardiac catheterization, medical treatment was recommended. Blood pressure is fluctuating. Ordnance Handler is adjusting the medication. No chest pain. No palpitations. No fever. EXAM: Alert and oriented times three. Pulse 80. Blood pressure is 138/91. Respiratory rate 16. Temperature 98 degrees, pulse ox 98% on room air. HEENT: Conjunctivae normal. Neck: No jugular venous distention. Cardiovascular: S1, S2 muffled. Respirations: Breath sounds diminished in the bases. No rhonchi and no crackles. Abdomen is soft, nontender. Legs: No edema and no swelling. Central nervous system: No focal deficits. LABS: WBC 9.1, creatinine is 1.46. ASSESSMENT: 1. Chest pain with possible acute non ST-segment elevation myocardial infarction, troponin 33.3. 2. Status post cardiac catheterization for medical treatment. 3. ST-T wave changes on the EKG. 4. Fever, improved. 5. History of myocardial infarction. 6. Coronary artery disease, coronary artery bypass grafting x5 previously. 7. History of noncompliance. 8. History of nicotine dependence, continued ongoing. 9. Increased creatinine with possible chronic kidney disease stage 3. 10.Hypokalemia, mild. 11.Increased WBC possibly reactive. 12.History atrial fibrillation. 13.History of hypertension. 14.History of hyperlipidemia. 15.History of degenerative joint disease. RECOMMENDATIONS AND DISCUSSION: Recommend to continue current medication, continue with symptomatic treatment. Otherwise, guarded prognosis because of multiple complex medical issues and follow closely with Cardiology. Adjust medications. Monitor blood pressure closely and further recommendations to follow. MMODL / IJN: [id number] /
[2017-11-27] MEDS: ALPRAZolam 0.25 MG TAB PO PRN (18:33)
[2017-11-27] MEDS: NICOTINE 14MG/24HR PATCH TRANSDERM SCH (21:10)
[2017-11-28] MEDS: ALPRAZolam 0.5 MG TAB PO PRN (01:22)
[2017-11-28] MEDS: ALBUTEROL NEBULIZED 2.5 MG/3 ML INHALATION PRN ×2 (02:24→08:11)
[2017-11-28 06:39] LABS: Basophils # (A) 0.1 k/uL (0-0.2); Basophils % (A) 1 %; Eosinophils # (A) 0.1 k/uL (0-0.7); Eosinophils % (A) 2 %; HCT 38.4 % (39.0-53.0); HGB 12.7 gm/dL (13.0-17.5); Hypochromasia Slight; Lymphocytes # (A) 1.3 k/uL (1.0-4.8); Lymphocytes % (A) 15 %; MCH 28.9 pg (25.0-35.0); MCHC 33.1 g/dL (31.0-37.0); MCV 87.3 fL (80.0-100.0); Mean Platelet Volume 9.5; Monocytes # (A) 0.7 k/uL (0-1.0); Monocytes % (A) 9 %; Neutrophils # (A) 6.1 k/uL (1.3-7.7); Neutrophils % (A) 72 %; Platelet Count 209 k/uL (150-450); RDW 15.9 % (11.5-15.5); WBC 8.6 k/uL (3.8-10.6)
[2017-11-28] MEDS: PANTOPRAZOLE 40 MG TABLET PO SCH (06:46)
[2017-11-28 06:47] LABS: Anion Gap 10 mmol/L; Blood Urea Nitrogen 27 mg/dL (9-20); Calcium 9.1 mg/dL (8.4-10.2); Carbon Dioxide 24 mmol/L (22-30); Chloride 105 mmol/L (98-107); Glucose 107 mg/dL (74-99); Sodium 139 mmol/L (137-145)
[2017-11-28 06:49] LABS: Potassium 3.7 mmol/L (3.5-5.1)
[2017-11-28] MEDS: cloNIDine HCL 0.1 MG TAB PO SCH (08:41)
[2017-11-28] MEDS: ASPIRIN 325 MG TAB PO SCH (08:41)
[2017-11-28] MEDS: METOPROLOL TARTRATE 50 MG TAB PO SCH (08:42)
[2017-11-28] MEDS: CLOPIDOGREL 75 MG TAB PO SCH (08:42)
[2017-11-28] MEDS ORDERED: ATORVASTATIN 80 MG TAB PO SCH (09:00)
[2017-11-28] MEDS ORDERED: LISINOPRIL 5 MG TAB PO SCH (09:00)
[2017-11-28 11:44] VITALS: BP 127/89; PULSE 72; RESP 15; TEMP 96.3
--- NOTE | 2017-11-28 15:45 | P.PN ---
Subjective Progress Note Date: 11/28/17 Principal diagnosis: Non-STEMI This is a 52-year-old gentleman who presented to the hospital with a non-ST elevation myocardial infarction, he underwent a cardiac catheterization which revealed severe triple-vessel coronary artery disease with a patent KILPATRICK to the LAD, patent saphenous vein graft to the RCA, occluded vein grafts to the left circumflex. Maximal medical therapy was advised. Patient has remained pain-free, he's been up without any difficulty. He will be discharged home today to follow-up with Dr. Vigil in the office post discharge. Patient has a significant history of noncompliance in the past, all of his medications have been provided to him. He has been instructed regarding the importance of medication compliance. Objective - Vital Signs Vital signs: Vital Signs Temp 96.3 F L 11/28/17 11:43 Pulse 72 11/28/17 11:43 Resp 15 11/28/17 11:43 BP 127/89 11/28/17 11:43 Pulse Ox 95 11/28/17 11:43 Intake & Output 11/27/17 11/28/17 11/28/17 18:59 06:59 18:59 Intake Total 1360 320 Output Total 500 Balance 1360 320 -500 Weight 111.4 kg Intake: IV 20 0.9 20 Oral 1360 300 Output: Urine 500 Other: Voiding Method Toilet Toilet Toilet # Voids 2 2 - Exam PHYSICAL EXAMINATION: HEENT: [Head is atraumatic, normocephalic. Pupils equal, round. Neck is supple. There is no elevated jugular venous pressure.] HEART EXAMINATION: [Heart S1, S2 normal. No murmur or gallop heard.] CHEST EXAMINATION:[ Lungs are clear to auscultation and precussion. No chest wall tenderness is noted on palpation or with deep breathing.] ABDOMEN: [ Soft, nontender. Bowel sounds are heard. No organomegaly noted]. EXTREMITIES:[ 2+ peripheral pulses with no evidence of peripheral edema and no calf tenderness noted]. NEUROLOGIC [patient is awake, alert and oriented -3.] . - Labs CBC & Chem 7: 11/28/17 06:08 11/28/17 06:08 Labs: Abnormal Lab Results - Last 24 Hours (Table) 11/28/17 11/28/17 Range/Units 06:08 06:08 Hgb 12.7 L (13.0-17.5) gm/dL Hct 38.4 L (39.0-53.0) % RDW 15.9 H (11.5-15.5) % BUN 27 H (9-20) mg/dL Creatinine 1.45 H (0.66-1.25) mg/dL Glucose 107 H (74-99) mg/dL Microbiology - Last 24 Hours (Table) 11/24/17 19:30 Blood Culture - Preliminary Blood No Growth after 72 hours Assessment and Plan Plan: Assessment and plan #1 non-ST elevation myocardial infarction, status post cardiac catheterization which revealed severe triple-vessel coronary artery disease, patent KILPATRICK to the LAD, patent saphenous vein graft to the RCA, occluded vein grafts to the left circumflex. Medical therapy advised. #2 history of noncompliance #3 hypertension #4 hyperlipidemia #5 nicotine dependence Plan From cardiology's perspective, patient may be able to be discharged home today. We'll make him a follow-up appointment in the office post discharge. Patient has been provided all of his medications, and instructed regarding the importance of medication compliance on discharge. DNP note has been reviewed, I agree with a documented findings and plan of care. Patient was seen and examined.
--- NOTE | 2017-11-29 08:47 | DS ---
DISCHARGE SUMMARY DATE OF SERVICE: 11/28/2017. FINAL DIAGNOSES: 1. Chest pain with possible acute non ST elevation myocardial infarction, troponin 333.3. 2. Status post cardiac catheterization on medical treatment. 3. ST-T changes on the EKG. 4. Fever, improved. 5. History of myocardial infarction. 6. History of coronary artery disease, coronary artery bypass grafting. 7. History of noncompliance. 8. History of nicotine dependence, continued ongoing. 9. Increased creatinine with possible chronic kidney stage 3. DISCHARGE DISPOSITION: The patient is being discharged in stable condition with guarded prognosis. HISTORY OF PRESENT ILLNESS: This is a pleasant 52-year-old gentleman with past medical history of multiple medical problems admitted with chest pain acute non ST elevation myocardial infarction. Patient had cardiac catheterization. Medical treatment recommended by Cardiology. Please refer to Cardiology cath report for detailed reports. Otherwise the patient improved significantly and cardiology cleared the patient for discharge. On exam, vital signs are stable. Cardiovascular: S1, S2. Abdomen soft. Nervous system: No focal deficits. DISCHARGE ADVICE AND MEDICATIONS: 1. Diet is cardiac diet. 2. Activity limited until followup. 3. Follow up with Dr. Rey in 2-3 days. 4. Follow up with the integration lead as recommend. MEDICATIONS ARE: 1. Xanax 0.25 q.6h p.r.n. 2. Aspirin 320 mg daily. 3. Lipitor 80 mg daily. 4. Catapres 0.1 t.i.d. 5. Plavix 75 mg. 6. [place] 10 mg q.4h p.r.n. 7. Zestril 5 mg p.o. 8. Lopressor 50 mg p.o. b.i.d. 9. Habitrol 14 daily. 10.Nitrostat 0.4 sublingual p.r.n. MMODL / IJN: [id number] /
--- NOTE | 2017-12-01 13:01 | CDI ---
Last Revision, October 2017 Documentation Clarification Form Date: 12/01/2017 12:33:00 PM From: Vania Sidhu Phone: If you have a question regarding this query, please contact Yady Rodriguez Pulmonary Nurse Practitioner at [phone] Admit Date: 11/24/2017 8:47:00 PM Patient Name: Pedro Rios Visit Number: [id number] Discharge Date: ATTENTION: The Clinical Documentation Specialists (CDI) and [facility] Coding Staff appreciate your assistance in clarifying documentation. Please respond to the clarification below the line at the bottom and electronically sign. The CDI & [facility] Coding staff will review the response and follow-up if needed. Please note: Queries are made part of the Legal Health Record. If you have any questions, please contact the author of this message via ITS. Dr. Rod Leon Past history of atrial fibrillation is documented in the H&P, your consult note and in the progress notes. History/Risk Factors: The patient has a history of CAD, CABG and hypertension. EKG/telemetry: EKG #1 - Normal sinus rhythm, incomplete RBBB, septal infarct age undetermined, possible lateral infarct age undetermined, prolonged QT EKG#2 - Normal sinus rhythm, nonspecific ST and T wave abnormality EKG#3 - Normal sinus rhythm, possible lateral infarct age undetermined, ST & T wave abnormailty consider anterior ischemia, prolonged QT Treatment: None In your professional opinion, can you please clarify the type of atrial fibrillation, if known? patient has paroxysmal atrial fibrillation Please continue to document in your progress notes and discharge summary in order to capture severity of illness and risk of mortality. Include clinical findings that support your diagnosis. MTDD
--- NOTE | 2017-12-01 13:15 | CDI ---
Last Revision, October 2017 Documentation Clarification Form Date: 12/01/2017 1:01:00 PM From: Vania Sidhu Phone: If you have a question regarding this query, please contact Yadyjose Rodriguez Lens Dotter at [phone]. Admit Date: 11/24/2017 8:47:00 PM Patient Name: Pedro Rios Visit Number: [id number] Discharge Date: ATTENTION: The Clinical Documentation Specialists (CDI) and [facility] Coding Staff appreciate your assistance in clarifying documentation. Please respond to the clarification below the line at the bottom and electronically sign. The CDI & [facility] Coding staff will review the response and follow-up if needed. Please note: Queries are made part of the Legal Health Record. If you have any questions, please contact the author of this message via ITS. Dr. Rod Leon New onset heart failure is documented in the ED report. History/Risk Factors: Patient has a history of hypertension, CAD, CABG and atrial fib. Clinical Indicators: Pedal edema documented in the ED, VS/Pulse OX: T. 98.8, P. 95, R. 24, BP 165/96, Pulse Ox. 97% on RA BNP: 14,900 Echocardiogram Results: Moderate - severely impaired systolic function with an EF between 30 - 35%. Chest X Ray: Mild pulmonary interstitial edema and small pleural effusions could relate to mild heart failure. Treatment: IV Lasix 40 mg once In your professional opinion, can you please clarify the acuity and type of CHF if known? Systolic Heart Failure: Acute Chronic Acute on Chronic Diastolic Heart Failure: Acute Chronic Acute on Chronic Systolic & Diastolic Heart Failure: Acute Chronic Acute on Chronic Heart Failure Unable to Determine Other, please specify Please continue to document in your progress notes and discharge summary in order to capture severity of illness and risk of mortality. Include clinical findings that support your diagnosis. MTDD
== END 2017-11-28 15:30 | disposition home or self-care (01) | DRG 281 ==
LOC: EC 18:50 → 6SEL 20:47
PROVIDERS: ADMIT Hospitalist; ATTEND Hospitalist
PROC: B213YZZ Fluoroscopy of Multiple Coronary Artery Bypass Grafts using Other Contrast (ICD-10-PCS; 2017-11-25)
PROC: B211YZZ Fluoroscopy of Multiple Coronary Arteries using Other Contrast (ICD-10-PCS; 2017-11-25)
PROC: B215YZZ Fluoroscopy of Left Heart using Other Contrast (ICD-10-PCS; 2017-11-25)
PROC: 4A023N7 Measurement of Cardiac Sampling and Pressure, Left Heart, Percutaneous Approach (ICD-10-PCS; principal; 2017-11-25 09:00)
DX: I21.4 Non-ST elevation (NSTEMI) myocardial infarction (principal); I25.810 Atherosclerosis of coronary artery bypass graft(s) without angina pectoris; I50.22 Chronic systolic (congestive) heart failure; I11.0 Hypertensive heart disease with heart failure; I73.9 Peripheral vascular disease, unspecified; N18.3 Chronic kidney disease, stage 3 (moderate); E78.5 Hyperlipidemia, unspecified; E87.6 Hypokalemia; F17.200 Nicotine dependence, unspecified, uncomplicated; F41.9 Anxiety disorder, unspecified; I25.2 Old myocardial infarction; M19.90 Unspecified osteoarthritis, unspecified site; R50.9 Fever, unspecified; D72.829 Elevated white blood cell count, unspecified; Z79.82 Long term (current) use of aspirin; Z79.899 Other long term (current) drug therapy; Z91.14 Patient's other noncompliance with medication regimen; Z95.1 Presence of aortocoronary bypass graft; Z71.6 Tobacco abuse counseling; I48.0 Paroxysmal atrial fibrillation
CPT/HCPCS: 36415; 71046; 80048; 80053; 80061; 81001; 82550; 82553; 83605; 83735; 83880; 84484; 85025; 85610; 85730; 87040; 87502; 93005; 93306; 93459; 94640; 94760; 96365; 96375; 96376; 99291

== ENCOUNTER → 2018-01-26 | Outpatient (CLI) | payer OTHER ==
--- NOTE | 2018-01-27 13:40 | CT ---
EXAMINATION TYPE: CT chest w con DATE OF EXAM: 01/26/2018 COMPARISON: Prior chest 01/19/2018 HISTORY: COPD, SOB and lung mass. CT DLP: 692 mGycm Automated exposure control for dose reduction was used. CONTRAST: CT scan of the chest is performed with IV Contrast, patient injected with 80ml mL of Isovue M300. FINDINGS: LUNGS: The lungs are grossly clear, there is no concerning parenchymal mass or nodule identified. Gamaliel cified nodules present in the right lower lobe on axial image 35 There is no pleural effusion or pne umothorax seen. The tracheobronchial tree is patent. MEDIASTINUM: There is mediastinal adenopathy in the retrocaval pretracheal mediastinum, shotty nodes are present in the superior mediastinum, axilla, aorticopulmonary window and hilar regions. AORTA: No additional significant abnormality is seen. OTHER: The patient is post median sternotomy. There are coronary artery calcifications. IMPRESSION: Mediastinal adenopathy. Coronary artery disease and postop changes. Granulomatous diseas e.
== END ==
LOC: RADCTMAIN 18:14
PROVIDERS: ATTEND Internal Medicine Critical Care Medicine
DX: D71 Functional disorders of polymorphonuclear neutrophils (principal); R59.0 Localized enlarged lymph nodes; I25.10 Atherosclerotic heart disease of native coronary artery without angina pectoris; J44.9 Chronic obstructive pulmonary disease, unspecified; Z98.890 Other specified postprocedural states
CPT/HCPCS: 82565; 84520; 71260; 36415; Q9967

== ENCOUNTER → 2018-11-20 | Outpatient (CLI) | payer OTHER ==
--- NOTE | 2018-11-20 12:10 | XR ---
EXAMINATION TYPE: XR lumbosacral spine min 4V DATE OF EXAM: 11/20/2018 CLINICAL HISTORY: Low back pain. TECHNIQUE: Frontal, lateral, and oblique images of the lumbar spine are obtained. COMPARISON: None FINDINGS: There are 5 lumbar type vertebral bodies identified. The lumbar spine shows satisfactory alignment without evidence of acute fracture or dislocation. There is mild disc space narrowing L4-L5 level otherwise vertebral body heights and disk space heights are within normal limits. The obliqu e images appear within normal limits. There are suspect 11 mm calculus lower pole level left kidney a t superior L2 level. IMPRESSION: Mild disc space narrowing L4-L5 level. Suspected left-sided nephrolithiasis, correlate cl inically.
== END | disposition home or self-care (01) ==
LOC: RADXRMAIN 11:20
PROVIDERS: ATTEND Family Medicine
DX: M48.061 Spinal stenosis, lumbar region without neurogenic claudication (principal)
CPT/HCPCS: 72110